=== PATIENT | male | born 1995 | race Caucasian/White ===

== ENCOUNTER 2024-12-29 07:33 | Emergency (ER) | payer BC, SELFPAY ==
[2024-12-29 07:47] VITALS: BP 145/97
[2024-12-29 08:33] VITALS: BP 148/94
--- NOTE | 2024-12-29 08:35 | ED.GENMED ---
History of Present Illness
General
Chief Complaint: Chest Problem
Source: patient
Exam Limitations: none
Time Seen by Provider: 12/29/24 08:34
History of Present Illness
History of Present Illness:
29yoM with a history of prior substance use on Sublocade presenting for evaluation of chest pain. Symptoms have been intermittent for the past 2 days. He reports a pain in the left center of his chest which comes and goes. Pain seems to come on
randomly and lasts 1 to 2 seconds before resolving. Pain is described as feeling like a muscle strain/stretch. He denies any trauma or inciting incident. He has no current chest pain on initial exam. Patient has been very anxious regarding his
symptoms and decided to get evaluated today. He is otherwise asymptomatic and denies any shortness of breath, pleuritic pain, cough, fever, nausea, vomiting, dizziness, syncope. No family history of heart disease.
Past History
Past History
ED Past Medical History: Other (Substance abuse)
ED Past Surgical History: None
Patient has exhibited threatening behavior?: No
Social History
Drug: Narcotics
Personal: Single
Living: with family
Family History
Family History: Other
Phy Exam
General Physical Exam
General Presentation: well appearing and no apparent distress
General Skin: warm and dry
General Habitus: normal
General Mental: alert
ENT Exam
ENT Exam: normocephalic
Cardiovascular Exam
Cardiovascular Exam: regular rate/rhythm, no edema and no murmur
Pulmonary Exam
Pulmonary Exam: lungs clear, no respiratory distress, no rales, chest non tender, no crackles, no rhonchi and no wheezing
Neurological Exam
Neurological Exam: alert
Staci Coma Scale
Eye Opening: Spontaneous
Verbal Response: Oriented
Motor Response: Obeys Commands
GCS Total Score: 15
Skin Exam
Skin Exam: normal color and warm/dry
Psychiatric Exam
Psychiatric Exam: normal mood/affect
Course
Orders/Labs/Results
Orders:
Orders
12/29/24 07:50
EKG [Electrocardiogram (*1)] Urgent
Reason for Study: Chest Pain
EKG- Treatment ONCE
12/29/24 08:58
Cardiac Monitoring- Treatment ONCE
CR Chest - 2 Views Urgent
Comment:
Reason For Exam: CP
12/29/24 09:07
CMP [Comprehensive Metabolic Panel] Urgent
Complete Blood Count/No Diff Urgent
Magnesium Urgent
Troponin I Urgent
Abnormal Lab Results
12/29/24
09:07
MPV 10.7 H fL
(7.4-10.4)
Glucose 126 H mg/dl
(70-99)
Calcium 10.5 H mg/dl
(8.4-10.2)
Total Protein 8.5 H g/dl
(6.3-8.2)
Albumin 5.2 H g/dl
(3.5-5.0)
12/29/24 09:07
12/29/24 09:07
Vital Signs
Initial and Last Documented VS:
Initial Vital Signs
Temp Pulse Resp BP Pulse Ox
98.1 F 90 16 145/97 100
12/29/24 07:47 12/29/24 07:47 12/29/24 07:47 12/29/24 07:47 12/29/24 07:47
Last Documented Vital Signs
Temp Pulse Resp BP Pulse Ox
99.0 F 75 16 144/81 99
12/29/24 10:37 12/29/24 10:37 12/29/24 10:37 12/29/24 10:37 12/29/24 10:37
MDM/Problems Addressed
Differential Diagnosis Includes:
29yoM here with intermittent chest pain x 2 days. Described as a muscle pull that lasts 1-2 seconds at a time and comes on randomly. VSS. He is well appearing in no distress. Exam reassuring. Differential diagnosis includes but is not limited to:
muscle spasm, precordial catch syndrome, anxiety, doubt ACS
Initial ED plan: Triage EKG shows NSR without ischemic changes. Prolonged QTc noted at 491. Will check cardiac labs, magnesium, and CXR.
*Pulse Oximetry
SaO2: 100
Oxygen Mode of Delivery: Room air
Patient hypoxic: no (100%)
*EKG
Interpreted by ED Provider?: Yes
EKG Intrepretation Date: 12/29/24
Heart Rate: 89
Rate: normal
Rhythm: sinus
Lucas: normal axis
Interval: long QT (491)
QRS Pattern: normal QRS
Ischemia: other (nonspecific T wave abnormality)
*Critical Care Note
Total Time (30-74mins, 75-104mins- exclusive of procedures): Not Applicable
Update Note
Update Note:
Labs unremarkable including normal electrolytes and troponin. CXR is clear. HEART score is 0. No indication for hospitalization. Patient advised to f/u with cardiology as an outpatient due to the prolonged QTc on EKG today. ED return precautions
reviewed and he was discharged in stable condition.
ED Attending Note
-
Portions of this chart may have been created with voice recognition software.� Occasional wrong word or��sound alike� substitutions may have occurred due to the inherent limitations of voice recognition software.
Discharge Plan
Departure
Patient Disposition: Home (Routine Discharge)
Date of Disposition: 12/29/24
Time of Disposition: 10:10
Patient with high blood pressure during this ER visit?: Yes
Discharge Problem:
Atypical chest pain, Prolonged Q-T interval on ECG
Instructions: Chest Pain (DC)
Prescriptions:
No Action
naloxone [Narcan] 4 MG spray,non-aerosol
4 mg intranasal DIRECTED Qty: 2 0RF
buprenorphine HCl 2 MG tablet, sublingual
4 mg sublingual TID Qty: 18 0RF
Rx Instructions:
12 mg a day for 3 days
Referrals:
[facility] [Provider Group]
Zelalem Maradiaga MD [Active, Cardiology]
NONE,* [Family Provider, Internal Medicine]
Activity Restrictions/Additional Instructions:
Please call tomorrow to schedule a follow-up with a family doctor and [facility] etl developer. Return to the ER with any new or worsening symptoms.
Interventions
Interventions:
*Risk Screen - Suicide Last Done: 12/29/24 07:47
*General Assessment Last Done: 12/29/24 08:51
*Neglect/Abuse Screening Last Done: 12/29/24 07:47
*ED- Fall Risk Assessment Last Done: 12/29/24 08:51
*ED COVID-19 Vaccine History Last Done: 12/29/24 08:51
*Nursing Disposition Last Done: 12/29/24 10:37
ED- Cardiac Assessment Last Done: 12/29/24 08:51
ED- Pulmonary Assessment Last Done: 12/29/24 08:51
Discharge Date and Time
Discharge Date/Time: 12/29/24 10:20
Print Language: LAO
[2024-12-29 09:13] LABS: Hematocrit 45.4 % (39.0-52.0); Hemoglobin 16.2 g/dL (13.0-18.0); Mean Corp Hgb Conc. 35.7 g/dL (33.0-37.0); Mean Corpuscular Volume 82.8 fL (80.0-94.0); Platelet Count 285 10^3/uL (130-400); Red Cell Dist. Width 11.6 % (11.5-14.5)
[2024-12-29 09:30] LABS: ALT (SGPT) 19 U/L (0-50); AST (SGOT) 22 U/L (17-59); Albumin 5.2 g/dl (3.5-5.0); Alkaline Phosphatase 72 U/L (38-126); Blood Urea Nitrogen 15 mg/dl (9-20); Calcium 10.5 mg/dl (8.4-10.2); Carbon Dioxide 26 mmol/L (22-30); Chloride 105 mmol/L (98-107); Glucose 126 mg/dl (70-99); Magnesium 1.9 mg/dl (1.6-2.3); Potassium 4.3 mmol/L (3.5-5.1); Sodium 141 mmol/L (135-145); Total Protein 8.5 g/dl (6.3-8.2); eGFR > 60.00
[2024-12-29 09:37] VITALS: BP 149/85
[2024-12-29 09:39] LABS: Troponin I < 0.012 ng/ml
[2024-12-29 10:00] VITALS: BP 144/81
--- NOTE | 2024-12-29 10:29 | EDRN ---
REviewed discharge instructions with patient. Verbalized understanding. Ambulated with steady gait to the lobby.
[2024-12-29 10:37] VITALS: BP 144/81
== END 2024-12-29 10:20 | disposition home or self-care (01) ==
LOC: EMR 07:33
PROVIDERS: EMERGENCY PHYSICIAN Emergency Medicine
DX: R07.89 Other chest pain (principal); R94.31 Abnormal electrocardiogram [ECG] [EKG]
CPT/HCPCS: 99284; 71046; 80053; 83735; 84484; 85027; 93005